=== PATIENT | male | born 1960 | race Caucasian/White ===

== ENCOUNTER 2017-11-17 14:06 | Emergency (ER) | payer OTHER ==
[~2017-11-17] VITALS: Ht 190.5 cm; Wt 99.8 kg
--- OUTSIDE RECORDS SUMMARY | ~2017-11-17 | XMS | Clinical Summary ---
Demographics + + + | Address | [address] | | | [place] [address] | + + + | Home Phone | | + + + | Preferred Language | Unknown | + + + | Marital Status | Single | + + + | Yazidism Affiliation | Unknown | + + + | Race | Unknown | + + + | Ethnic Group | Other Race | + + + Author + + + | Author | [facility] | + + + | Organization | [facility] | + + + | Address | Unknown | + + + | Phone | Unavailable | + + + Care Team Providers + +------+ + | Care Glass Blower Name | Role | Phone | + +------+ + PP | Unavailable | + +------+ + Source Comments LYNDA is fully live on both [facility] and [facility] Allergies Not on File Current Medications Not on file Active Problems Not on file Social History + +-------+ +--------+------+ | Tobacco Use | Types | Packs/Day | Years | Date | | | | | Used | | + +-------+ +--------+------+ | Never Assessed | | | | | + +-------+ +--------+------+ + + + | Sex Assigned at | Date Recorded | | | | + + + | Not on file | | + + + Plan of Treatment + + + + + | Health Maintenance | Due Date | Last Done | Comments | + + + + + | INFLUENZA VACCINE | | | | | (FLU SHOT) | 8 | | | + + + + + Results Not on filefrom Last 3 Months"
--- OUTSIDE RECORDS SUMMARY | ~2017-11-17 | XMS | Clinical Summary ---
Demographics + + + | Address | [address] | | | [place] [address] | + + + | Home Phone | | + + + | Preferred Language | Unknown | + + + | Marital Status | Single | + + + | Sabianist Affiliation | Unknown | + + + | Race | Unknown | + + + | Ethnic Group | Other Race | + + + Author + + + | Author | [facility] | + + + | Organization | [facility] | + + + | Address | Unknown | + + + | Phone | Unavailable | + + + Care Team Providers + +------+ + | Care Mri Technologist Name | Role | Phone | + +------+ + PP | Unavailable | + +------+ + Source Comments LYNDA is fully live on both [facility] and [facility] Allergies Not on File Current [...]
[2017-11-17] MEDS ORDERED: GLUCOPHAGE500 MG PO (14:22)
[2017-11-17] MEDS ORDERED: NORCO 10-325 T1 EACH PO (15:00)
[2017-11-17] MEDS ORDERED: IBUPROFEN600 MG PO (15:00)
== END 2017-11-17 15:23 | disposition home or self-care (01) ==
LOC: ED 14:06
PROC: 2W21X4Z Dressing of Face using Bandage (ICD-10-PCS; principal; 2017-11-17)
PROC: 2W22X4Z Dressing of Neck using Bandage (ICD-10-PCS; 2017-11-17)
PROC: 2W2CX4Z Dressing of Right Lower Arm using Bandage (ICD-10-PCS; 2017-11-17)
PROC: 2W2DX4Z Dressing of Left Lower Arm using Bandage (ICD-10-PCS; 2017-11-17)
DX: T21.21XA Burn of second degree of chest wall, initial encounter (principal); T20.14XA Burn of first degree of nose (septum), initial encounter; T20.12XA Burn of first degree of lip(s), initial encounter; T20.17XA Burn of first degree of neck, initial encounter; E11.9 Type 2 diabetes mellitus without complications; I10 Essential (primary) hypertension; Z79.84 Long term (current) use of oral hypoglycemic drugs; X16.XXXA Contact with hot heating appliances, radiators and pipes, initial encounter
CPT/HCPCS: 16020; 80053; 85025; 85610; 96361; 96374; 96375; 99283; J2270; J2405; J7030

== ENCOUNTER → 2017-11-19 | Emergency (ER) | payer OTHER ==
[~2017-11-19] VITALS: Ht 190.5 cm; Wt 99.8 kg
[~2017-11-19] MED LIST: GLUCOPHAGE500 MG PO; IBUPROFEN600 MG PO; NORCO 10-325 T1 EACH PO
== END ==
LOC: ED 08:32
DX: T23.221A Burn of second degree of single right finger (nail) except thumb, initial encounter (principal); T23.232A Burn of second degree of multiple left fingers (nail), not including thumb, initial encounter; T20.27XA Burn of second degree of neck, initial encounter; T20.26XA Burn of second degree of forehead and cheek, initial encounter; T21.21XA Burn of second degree of chest wall, initial encounter; T31.0 Burns involving less than 10% of body surface; I10 Essential (primary) hypertension; E11.9 Type 2 diabetes mellitus without complications; Z79.84 Long term (current) use of oral hypoglycemic drugs; X16.XXXA Contact with hot heating appliances, radiators and pipes, initial encounter
CPT/HCPCS: 16020; 99282